=== PATIENT | female | born 1980 | race Caucasian/White ===

== ENCOUNTER 2019-07-07 09:08 | Emergency (ER) | payer OTHER ==
--- NOTE | 2019-07-07 10:13 | ER ---
Nurse's Notes [facility] Name: Kalani Gaming Age: 38 yrs Sex: Female : 1980 Arrival Date: 07/07/2019 Time: 09:12 Bed 15 Private MD: Unknown, Unknown Diagnosis: Migraine Presentation: 07/07 09:18 Presenting complaint: Migraine x 2 days. + photosensitivity, + nausea. Transition of hb care: patient was not received from another setting of care. Onset of symptoms was July 06, 2019. Risk Assessment: Do you want to hurt yourself or someone else? Patient reports no desire to harm self or others. Initial Sepsis Screen: Does the patient meet any 2 criteria? No. Patient's initial sepsis screen is negative. Does the patient have a suspected source of infection? No. Patient's initial sepsis screen is negative. Care prior to arrival: Medication(s) given: Excedrin at 0745 today. 09:18 Method Of Arrival: Ambulatory hb 09:18 Acuity: THO 3 hb Triage Assessment: 09:25 Headache History: The patient has had previous headaches and this one is similar to rb1 previous episodes. 09:25 Pain: Also complains of nausea, photophobia. 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 - Social history:: Smoking status: Patient uses tobacco products, smokes one-half pack cigarettes per day. - Ebola Screening: : No symptoms or risks identified at this time. - Family history:: not pertinent. Screenin:25 Abuse screen: Denies threats or abuse. Nutritional screening: No deficits noted. rb1 Tuberculosis screening: No symptoms or risk factors identified. Fall Risk None identified. Assessment: 09:25 General: Appears uncomfortable, Behavior is calm, cooperative, Denies fever. Pain: rb1 Complains of pain in right side of head Pain currently is 4 out of 10 on a pain scale. Pain began x 2 days. Neuro: Level of Consciousness is awake, alert, obeys commands, Oriented to person, place, time, situation. Neuro: Reports dizziness, headache in right photophobia. Cardiovascular: Capillary refill < 3 seconds is brisk in bilateral fingers. Respiratory: Airway is patent Respiratory effort is even, unlabored, Respiratory pattern is regular, symmetrical. GI: Reports nausea. : No signs and/or symptoms were reported regarding the genitourinary system. Derm: Skin is pink, warm \T\ dry. Musculoskeletal: Range of motion: intact in all extremities. 10:20 Reassessment: Patient appears in no apparent distress at this time. No changes from rb1 previously documented assessment. Pt. refused serum test because she has an IUD. 10:45 Reassessment: Discharge pending due to shot time. rb1 Vital Signs: 09:21 BP 116 / 70; Pulse 66; Resp 16; Temp 98.3; Pulse Ox 100% on R/A; Weight 63.05 kg; hb Height 5 ft. 4 in. (162.56 cm); Pain 4/10; 10:20 BP 124 / 74; Pulse 73; Resp 16; Temp 98.1(O); Pulse Ox 99% on R/A; rb1 11:05 BP 124 / 74; Pulse 62; Resp 15; Temp 98.1(O); Pulse Ox 100% on R/A; Pain 2/10; rb1 09:21 Body Mass Index 23.86 (63.05 kg, 162.56 cm) ED Course: 09:12 Patient arrived in ED. ag5 09:14 Unknown, Unknown is Private Physician. ag5 09:19 Triage completed. hb 09:21 Arm band placed on. hb 09:25 Chandler Camacho MD is Attending Physician. sarkis 09:25 Patient has correct armband on for positive identification. Bed in low position. Call rb1 light in reach. Side rails up X 1. Pulse ox on. NIBP on. Warm blanket given. 09:40 Bri Davidson, FREDI is Primary Nurse. rb1 10:12 Jacob Melo MD is Referral Physician. [facility] 11:05 No provider procedures requiring assistance completed. Patient did not have IV access rb1 during this emergency room visit. Administered Medications: 10:45 Drug: TORadol 60 mg Route: IM; Site: right gluteus; rb1 11:05 Follow up: Response: No adverse reaction; Pain is decreased rb1 10:45 Drug: Phenergan 25 mg Route: IM; Site: right deltoid; rb1 11:05 Follow up: Response: No adverse reaction; Nausea is decreased rb1 Outcome: 10:11 Discharge ordered by MD. sarkis 11:05 Patient left the ED. rb1 11:05 Discharged to home ambulatory, with significant other. rb1 11:05 Condition: stable 11:05 Discharge instructions given to patient, Instructed on discharge instructions, follow up and referral plans. medication usage, Demonstrated understanding of instructions, follow-up care, medications, Prescriptions given X 2. Signatures: Chandler Camacho MD MD cha Barber, Rebecca, RN RN [facility] Tamara Carbajal RN RN Madonna Watkins ag5 Corrections: (The following items were deleted from the chart) 11:31 11:25 Patient left the ED. rb1 rb1 11:32 10:20 Reassessment: Patient appears in no apparent distress at this time. No changes rb1 from previously documented assessment. rb1
--- NOTE | 2019-07-07 10:13 | EDPHYS ---
Physician Documentation [facility] Name: Kalani Gaming Age: 38 yrs Sex: Female : 1980 Arrival Date: 07/07/2019 Time: 09:12 Bed 15 Private MD: Unknown, Unknown ED Physician Chandler Camacho HPI: 07/07 10:04 This 38 yrs old Female presents to ER via Ambulatory with complaints of sarkis Headache. 10:04 The patient complains of pain to the top of head, forehead, left frontal area, right sarkis frontal area and right temporal area. The patient describes the headache as constant, a pressure. Onset: The symptoms/episode began/occurred 3 day(s) ago. Associated signs and symptoms: The patient has no apparent associated signs or symptoms. Severity of symptoms: At its worst the pain was mild, moderate, in the emergency department the pain is unchanged. Headache History: The patient has had previous headaches and this one is similar to previous episodes. The symptoms are alleviated by Darkened room, quiet, remaining still. The patient has experienced similar episodes in the past, multiple times. 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 - Social history:: Smoking status: Patient uses tobacco products, smokes one-half pack cigarettes per day. - Ebola Screening: : No symptoms or risks identified at this time. - Family history:: not pertinent. ROS: 10:04 Constitutional: Negative for fever, chills, and weight loss, Eyes: Negative for injury, sarkis pain, redness, and discharge, ENT: Negative for injury, pain, and discharge, Neck: Negative for injury, pain, and swelling, Cardiovascular: Negative for chest pain, palpitations, and edema, Respiratory: Negative for shortness of breath, cough, wheezing, and pleuritic chest pain, Abdomen/GI: Negative for abdominal pain, nausea, vomiting, diarrhea, and constipation, Back: Negative for injury and pain, : Negative for injury, bleeding, discharge, and swelling, MS/Extremity: Negative for injury and deformity, Skin: Negative for injury, rash, and discoloration, Psych: Negative for depression, anxiety, suicide ideation, homicidal ideation, and hallucinations, Allergy/Immunology: Negative for hives, rash, and allergies, Endocrine: Negative for neck swelling, polydipsia, polyuria, polyphagia, and marked weight changes, Hematologic/Lymphatic: Negative for swollen nodes, abnormal bleeding, and unusual bruising. 10:04 Neuro: Positive for headache. Exam: 10:04 Constitutional: This is a well developed, well nourished patient who is awake, alert, sarkis and in no acute distress. Head/Face: Normocephalic, atraumatic. Eyes: Pupils equal round and reactive to light, extra-ocular motions intact. Lids and lashes normal. Conjunctiva and sclera are non-icteric and not injected. Cornea within normal limits. Periorbital areas with no swelling, redness, or edema. ENT: Nares patent. No nasal discharge, no septal abnormalities noted. Tympanic membranes are normal and external auditory canals are clear. Oropharynx with no redness, swelling, or masses, exudates, or evidence of obstruction, uvula midline. Mucous membranes moist. Neck: Trachea midline, no thyromegaly or masses palpated, and no cervical lymphadenopathy. Supple, full range of motion without nuchal rigidity, or vertebral point tenderness. No Meningismus. Chest/axilla: Normal chest wall appearance and motion. Nontender with no deformity. No lesions are appreciated. Cardiovascular: Regular rate and rhythm with a normal S1 and S2. No gallops, murmurs, or rubs. Normal PMI, no JVD. No pulse deficits. Respiratory: Lungs have equal breath sounds bilaterally, clear to auscultation and percussion. No rales, rhonchi or wheezes noted. No increased work of breathing, no retractions or nasal flaring. Abdomen/GI: Soft, non-tender, with normal bowel sounds. No distension or tympany. No guarding or rebound. No evidence of tenderness throughout. Back: No spinal tenderness. No costovertebral tenderness. Full range of motion. Skin: Warm, dry with normal turgor. Normal color with no rashes, no lesions, and no evidence of cellulitis. MS/ Extremity: Pulses equal, no cyanosis. Neurovascular intact. Full, normal range of motion. Neuro: Awake and alert, GCS 15, oriented to person, place, time, and situation. Cranial nerves II-XII grossly intact. Motor strength 5/5 in all extremities. Sensory grossly intact. Cerebellar exam normal. Normal gait. Psych: Awake, alert, with orientation to person, place and time. Behavior, mood, and affect are within normal limits. 10:04 Neck: ROM/movement: is normal, no acute changes, Meningeal signs: are not present, Kernig's sign is negative, Brudzinski's sign is negative, Lymph nodes: no appreciated lymphadenopathy. Vital Signs: 09:21 BP 116 / 70; Pulse 66; Resp 16; Temp 98.3; Pulse Ox 100% on R/A; Weight 63.05 kg; hb Height 5 ft. 4 in. (162.56 cm); Pain 4/10; 10:20 BP 124 / 74; Pulse 73; Resp 16; Temp 98.1(O); Pulse Ox 99% on R/A; rb1 11:05 BP 124 / 74; Pulse 62; Resp 15; Temp 98.1(O); Pulse Ox 100% on R/A; Pain 2/10; rb1 09:21 Body Mass Index 23.86 (63.05 kg, 162.56 cm) hb MDM: 09:25 Patient medically screened. [facility] 10:09 Data reviewed: vital signs, nurses notes, lab test result(s), urinalysis. [facility] 07/07 10:07 Order name: Urine Dipstick--Ancillary (enter results) em1 07/07 10:04 Order name: Urine Dipstick-Ancillary (obtain specimen); Complete Time: 10:06 [facility] 07/07 10:04 Order name: Urine Test (obtain specimen); Complete Time: 10:06 [facility] Administered Medications: 10:45 Drug: TORadol 60 mg Route: IM; Site: right gluteus; [facility] 11:05 Follow up: Response: No adverse reaction; Pain is decreased rb1 10:45 Drug: Phenergan 25 mg Route: IM; Site: right deltoid; rb1 11:05 Follow up: Response: No adverse reaction; Nausea is decreased rb1 Disposition: 07/07/19 10:11 Discharged to Home. Impression: Migraine. - Condition is Stable. - Discharge Instructions: Migraine Headache. - Prescriptions for Fioricet with Codeine 50- 325-40-30 mg Oral capsule - take 1 capsule by ORAL route every 4 hours as needed not to exceed 6 capsules per 24hrs; 20 capsule. Zofran 4 mg Oral Tablet - take 1 tablet by ORAL route every 12 hours As needed; 20 tablet. - Medication Reconciliation Form, Thank You Letter, Antibiotic Education, Prescription Opioid Use form. - Follow up: Private Physician; When: 2 - 3 days; Reason: Recheck today's complaints, Continuance of care, Re-evaluation by your physician. Follow up: Jacob Melo MD; When: 2 - 3 days; Reason: Recheck today's complaints, Re-evaluation by your physician. - Problem is new. - Symptoms have improved. Signatures: Dispatcher [employer] EDWI Chandler Camacho MD MD cha Barber, Rebecca RN RN rb1 Tamara Carbajal RN RN Corrections: (The following items were deleted from the chart) 10:09 10:04 Chest/axilla: Exam negative for sarkis sarkis 10:12 10:11 07/07/2019 10:11 Discharged to Home. Impression: Migraine. Condition is Stable. sarkis Forms are Medication Reconciliation Form, Thank You Letter, Antibiotic Education, Prescription Opioid Use. Follow up: Private Physician; When: 2 - 3 days; Reason: Recheck today's complaints, Continuance of care, Re-evaluation by your physician. Problem is new. Symptoms have improved. sarkis 11:25 10:12 07/07/2019 10:11 Discharged to Home. Impression: Migraine. Condition is Stable. rb1 Forms are Medication Reconciliation Form, Thank You Letter, Antibiotic Education, Prescription Opioid Use. Follow up: Private Physician; When: 2 - 3 days; Reason: Recheck today's complaints, Continuance of care, Re-evaluation by your physician. Follow up: Jacob Melo; When: 2 - 3 days; Reason: Recheck today's complaints, Re-evaluation by your physician. Problem is new. Symptoms have improved. sarkis
[2019-07-07] MEDS ORDERED: PROMETHAZINE 25 MG/ML VIAL ONE (10:39)
[2019-07-07] MEDS ORDERED: KETOROLAC 30 MG/ML INJ ONE (10:39)
[2019-07-07 12:44] LABS: Urine Blood NEGATIVE (NEG); Urine Glucose NEGATIVE (NEG); Urine Protein NEGATIVE (NEG); Urine Specific Gravity <1.005 (1.005-1.030); Urine pH 5.5 (5.0-7.0)
== END 2019-07-07 11:25 | disposition home or self-care (01) ==
LOC: ER 09:08
DX: G43.909 Migraine, unspecified, not intractable, without status migrainosus (principal); Z88.0 Allergy status to penicillin; Z88.2 Allergy status to sulfonamides; Z88.6 Allergy status to analgesic agent
CPT/HCPCS: 81003; 96372; 99283; J2550

== ENCOUNTER 2019-08-01 21:08 | Emergency (ER) | payer OTHER ==
[2019-08-01 21:50] LABS: Calcium Oxalate Crystals- Ur PRESENT (NONE SEEN); Urine Bacteria 20-50 /HPF (<20); Urine Culture Reflex Order REFLEXED; Urine RBC <5 /HPF (NONE SEEN)
[2019-08-01 22:17] LABS: Urine Blood 2+ (NEG); Urine Glucose NEGATIVE (NEG); Urine Protein 1+ (NEG); Urine Specific Gravity >1.030 (1.005-1.030); Urine pH 5.5 (5.0-7.0)
[2019-08-01] MEDS ORDERED: NA CHLORIDE 0.9% 1,000 ML ONE (23:06)
[2019-08-01] MEDS ORDERED: FENTANYL CITR 100 MCG/2 ML ONE (23:06)
[2019-08-01] MEDS ORDERED: ONDANSETRON 4 MG/2 ML VIAL ONE (23:06)
[2019-08-01 23:24] LABS: Absolute Lymphocytes (CBC) 1.5 K/uL (0.7-4.9); Basophils % 0.6 % (0-1.3); Hematocrit 41.8 % (36.0-45.0); Lymphocytes % 25.9 % (15.3-44.8); MPV 9.5 fL (7.6-11.3); RBC Red Blood Cell Count 4.49 M/uL (3.86-4.86)
[2019-08-01 23:40] LABS: ALT/SGPT 16 U/L (12-78); AST/SGOT 14 U/L (15-37); Albumin 3.7 g/dL (3.4-5.0); Alkaline Phosphatase 59 U/L (45-117); BUN Blood Urea Nitrogen 9 mg/dL (7-18); Bicarbonate 23 mmol/L (21-32); Bilirubin Direct < 0.1 mg/dL (0-0.2); Bilirubin Total 0.2 mg/dL (0.2-1.0); Glucose Level 107 mg/dL (74-106); Lipase 181 U/L (73-393); Potassium 3.9 mmol/L (3.5-5.1); Protein, Total 6.8 g/dL (6.4-8.2); Sodium Level 143 mmol/L (136-145)
--- NOTE | 2019-08-02 01:34 | ER ---
Nurse's Notes [facility] Name: Kalani Gaming Age: 38 yrs Sex: Female : 1980 Arrival Date: 08/01/2019 Time: 21:12 Bed 13 Private MD: Diagnosis: Lower abdominal pain, unspecified;Diarrhea, unspecified Presentation: 08/01 21:15 Presenting complaint: Patient states: i have diarrhea and abdominal since yesterday. mg2 Transition of care: patient was not received from another setting of care. Onset of symptoms was July 31, 2019 at 01:00. Risk Assessment: Do you want to hurt yourself or someone else? Patient reports no desire to harm self or others. Initial Sepsis Screen: Does the patient meet any 2 criteria? No. Patient's initial sepsis screen is negative. Does the patient have a suspected source of infection? No. Patient's initial sepsis screen is negative. Care prior to arrival: None. 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 - Social history:: Smoking status: Patient uses tobacco products, smokes one-half pack cigarettes per day, Patient/guardian denies using alcohol, street drugs. - Ebola Screening: : No symptoms or risks identified at this time. Screenin:20 Abuse screen: Denies threats or abuse. Nutritional screening: No deficits noted. ea Tuberculosis screening: No symptoms or risk factors identified. Fall Risk None identified. Assessment: 21:30 General: Appears uncomfortable, Behavior is calm, cooperative, appropriate for age. ea Pain: Complains of pain in abdomen. Neuro: Level of Consciousness is awake, alert, obeys commands, Oriented to person, place, time, situation. Cardiovascular: Patient's skin is warm and dry. Respiratory: Airway is patent Respiratory effort is even, unlabored, Respiratory pattern is regular, symmetrical. GI: Abdomen is non-distended, Bowel sounds present X 4 quads. Abd is soft and non tender X 4 quads. Derm: Skin is pink, warm \T\ dry. 22:30 Reassessment: Patient and/or family updated on plan of care and expected duration. Pain ea level reassessed. Patient is alert, oriented x 3, equal unlabored respirations, skin warm/dry/pink. 23:32 Reassessment: Patient and/or family updated on plan of care and expected duration. Pain ea level reassessed. Patient is alert, oriented x 3, equal unlabored respirations, skin warm/dry/pink. 08/02 00:04 Reassessment: Patient and/or family updated on plan of care and expected duration. Pain ea level reassessed. Patient is alert, oriented x 3, equal unlabored respirations, skin warm/dry/pink. 01:40 Reassessment: Patient and/or family updated on plan of care and expected duration. Pain ea level reassessed. Patient is alert, oriented x 3, equal unlabored respirations, skin warm/dry/pink. Discharge instruction given to patient, verbalized the understanding of instruction. Pt left ED ambulatory accompanied by family. Vital Signs: 08/01 21:19 BP 124 / 70; Pulse 83; Resp 18; Temp 98.8(O); Pulse Ox 100% on R/A; Weight 63.5 kg; mg2 Height 5 ft. 3 in. (160.02 cm); Pain 6/10; 23:15 BP 107 / 70; Pulse 69; Resp 18; Pulse Ox 98% on R/A; ea 08/02 00:50 BP 110 / 68; Pulse 70; Resp 18; Temp 97.8; Pulse Ox 98% on R/A; ea 01:30 BP 127 / 80; Pulse 71; Resp 18; Temp 97.6; Pulse Ox 98% ; ea 08/01 21:19 Body Mass Index 24.80 (63.50 kg, 160.02 cm) mg2 ED Course: 08/01 21:12 Patient arrived in ED. cf2 21:17 Triage completed. mg2 21:20 Arm band placed on. mg2 21:23 Pearl Recio, FREDI is Primary Nurse. ea 21:24 Marquez Acuña MD is Attending Physician. 23:21 Patient has correct armband on for positive identification. Bed in low position. Call ea light in reach. Side rails up X2. 23:22 Inserted saline lock: 22 gauge in right antecubital area, using aseptic technique. ea 08/02 00:23 CT Abd/Pelvis - IV Contrast Only In Process Unspecified. EDMS 01:39 No provider procedures requiring assistance completed. IV discontinued, intact, ea bleeding controlled, No redness/swelling at site. Pressure dressing applied. Administered Medications: 08/01 23:20 Drug: fentaNYL (PF) 50 mcg Route: IVP; Site: right antecubital; ea 08/02 00:00 Follow up: Response: No adverse reaction; Pain is decreased ea 01:44 Follow up: Response: No adverse reaction; Pain is decreased; RASS: Alert and Calm (0) ea 08/01 23:20 Drug: Zofran 4 mg Route: IVP; Site: right antecubital; ea 08/02 00:00 Follow up: Response: No adverse reaction ea 08/01 23:20 Drug: NS 0.9% 1000 ml Route: IV; Rate: 1 bolus; Site: right antecubital; ea 08/02 01:38 Follow up: Response: No adverse reaction; IV Status: Completed infusion; IV Intake: ea 1000ml Intake: 01:38 IV: 1000ml; Total: 1000ml. ea Outcome: 01:32 Discharge ordered by . 01:40 Discharged to home ambulatory, with family. ea 01:40 Condition: stable 01:40 Discharge instructions given to patient, Instructed on discharge instructions, follow up and referral plans. Demonstrated understanding of instructions, follow-up care. 01:43 Patient left the ED. ea Signatures: Dispatcher [employer] EDNE Pearl Recio RN RN ea Starr, Gregory, MD MD gs Gardose, Michele, RN RN mg2 Grazyna Scott cf2 Corrections: (The following items were deleted from the chart) 01:41 01:40 Discharge instructions given to patient, Instructed on discharge instructions, ea follow up and referral plans. Demonstrated understanding of instructions, follow-up care, Prescriptions given X ea 01:44 00:00 Response: No adverse reaction; Pain is decreased ea ea
--- NOTE | 2019-08-02 01:35 | EDPHYS ---
Physician Documentation [facility] Name: Kalani Gaming Age: 38 yrs Sex: Female : 1980 Arrival Date: 08/01/2019 Time: 21:12 Bed 13 Private MD: ED Physician Marquez Acuña HPI: 08/02 01:22 This 38 yrs old Female presents to ER via Ambulatory with complaints of gs Abdominal Pain, Diarrhea. 01:22 The patient presents to the emergency department with diarrhea. Onset: The gs symptoms/episode began/occurred yesterday. Possible causes: unknown. The symptoms are aggravated by nothing. The symptoms are alleviated by nothing. Associated signs and symptoms: Pertinent positives: abdominal pain, Pertinent negatives: fever. Severity of symptoms: At their worst the symptoms were severe in the emergency department the symptoms have improved mildly. The patient has experienced similar episodes in the past, a few times. The patient has not recently seen a physician. 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 - Social history:: Smoking status: Patient uses tobacco products, smokes one-half pack cigarettes per day, Patient/guardian denies using alcohol, street drugs. - Ebola Screening: : No symptoms or risks identified at this time. ROS: 08/02 01:22 All other systems are negative. gs Exam: 01: Head/Face: Normocephalic, atraumatic. Eyes: Pupils equal round and reactive to light, gs extra-ocular motions intact. Lids and lashes normal. Conjunctiva and sclera are non-icteric and not injected. Cornea within normal limits. Periorbital areas with no swelling, redness, or edema. ENT: Nares patent. No nasal discharge, no septal abnormalities noted. Tympanic membranes are normal and external auditory canals are clear. Oropharynx with no redness, swelling, or masses, exudates, or evidence of obstruction, uvula midline. Mucous membranes moist. Neck: Trachea midline, no thyromegaly or masses palpated, and no cervical lymphadenopathy. Supple, full range of motion without nuchal rigidity, or vertebral point tenderness. No Meningismus. Chest/axilla: Normal chest wall appearance and motion. Nontender with no deformity. No lesions are appreciated. Cardiovascular: Regular rate and rhythm with a normal S1 and S2. No gallops, murmurs, or rubs. Normal PMI, no JVD. No pulse deficits. Respiratory: Lungs have equal breath sounds bilaterally, clear to auscultation and percussion. No rales, rhonchi or wheezes noted. No increased work of breathing, no retractions or nasal flaring. Back: No spinal tenderness. No costovertebral tenderness. Full range of motion. Skin: Warm, dry with normal turgor. Normal color with no rashes, no lesions, and no evidence of cellulitis. MS/ Extremity: Pulses equal, no cyanosis. Neurovascular intact. Full, normal range of motion. Neuro: Awake and alert, GCS 15, oriented to person, place, time, and situation. Cranial nerves II-XII grossly intact. Motor strength 5/5 in all extremities. Sensory grossly intact. Cerebellar exam normal. Normal gait. 01:22 Constitutional: The patient appears alert, awake, uncomfortable. 01:22 Abdomen/GI: Palpation: moderate abdominal tenderness, in the right lower quadrant and left lower quadrant, rebound tenderness, is not appreciated. Vital Signs: 08/01 21:19 BP 124 / 70; Pulse 83; Resp 18; Temp 98.8(O); Pulse Ox 100% on R/A; Weight 63.5 kg; mg2 Height 5 ft. 3 in. (160.02 cm); Pain 6/10; 23:15 BP 107 / 70; Pulse 69; Resp 18; Pulse Ox 98% on R/A; ea 08/02 00:50 BP 110 / 68; Pulse 70; Resp 18; Temp 97.8; Pulse Ox 98% on R/A; ea 01:30 BP 127 / 80; Pulse 71; Resp 18; Temp 97.6; Pulse Ox 98% ; ea 08/01 21:19 Body Mass Index 24.80 (63.50 kg, 160.02 cm) mg2 MDM: 08/01 22:03 Patient medically screened. 08/02 01:22 Differential diagnosis: appendicitis, diverticulitis, viral gastroenteritis, gs gastroenteritis. Data reviewed: vital signs, nurses notes, lab test result(s), radiologic studies. Response to treatment: the patient's symptoms have markedly improved after treatment, the patient's condition has returned to base line, patient is well hydrated. and as a result, I will discharge patient. 08/01 21:30 Order name: Urine Microscopic Only; Complete Time: 22:57 08/01 21:51 Order name: Urine Dipstick--Ancillary (enter results); Complete Time: :57 [facility] 08/01 21:51 Order name: Urine --Ancillary (enter results); Complete Time: :57 [facility] 08/01 21:52 Order name: Urine Culture [facility] 08/01 22:58 Order name: Basic Metabolic Panel; Complete Time: 01:01 08/01 22:58 Order name: CBC with Diff; Complete Time: 01:01 08/01 21:30 Order name: Urine Test (obtain specimen); Complete Time: 21:40 08/01 21:30 Order name: Urine Dipstick-Ancillary (obtain specimen); Complete Time: 21:40 08/01 22:58 Order name: Hepatic Function; Complete Time: 01:01 08/01 22:58 Order name: Lipase; Complete Time: 01:01 08/01 22:58 Order name: CT Abd/Pelvis - IV Contrast Only 08/01 22:58 Order name: IV Saline Lock; Complete Time: 23:20 08/01 22:58 Order name: Labs collected and sent; Complete Time: 23:20 Administered Medications: 08/01 23:20 Drug: fentaNYL (PF) 50 mcg Route: IVP; Site: right antecubital; 08/02 00:00 Follow up: Response: No adverse reaction; Pain is decreased ea 01:44 Follow up: Response: No adverse reaction; Pain is decreased; RASS: Alert and Calm (0) 08/01 23:20 Drug: Zofran 4 mg Route: IVP; Site: right antecubital; 08/02 00:00 Follow up: Response: No adverse reaction 08/01 23:20 Drug: NS 0.9% 1000 ml Route: IV; Rate: 1 bolus; Site: right antecubital; 08/02 01:38 Follow up: Response: No adverse reaction; IV Status: Completed infusion; IV Intake: ea 1000ml Disposition: 08/02/19 01:32 Discharged to Home. Impression: Lower abdominal pain, unspecified, Diarrhea, unspecified. - Condition is Stable. - Discharge Instructions: Abdominal Pain, Adult, Diarrhea, Adult. - Medication Reconciliation Form, Thank You Letter, Antibiotic Education, Prescription Opioid Use form. - Follow up: Private Physician; When: 2 - 3 days; Reason: Re-evaluation by your physician. Signatures: Dispatcher [employer] Pearl Lassiter RN RN ea Starr, Gregory, MD MD gs Gardose, Michele, RN RN mg2 Corrections: (The following items were deleted from the chart) 01:43 01:32 08/02/2019 01:32 Discharged to Home. Impression: Lower abdominal pain, ea unspecified; Diarrhea, unspecified. Condition is Stable. Forms are Medication Reconciliation Form, Thank You Letter, Antibiotic Education, Prescription Opioid Use. Follow up: Private Physician; When: 2 - 3 days; Reason: Re-evaluation by your physician. caridad
[2019-08-02 01:54] VITALS: O2SAT 98
[2019-08-02 01:56] VITALS: BP 127/80; TEMP 97.6
--- NOTE | 2019-08-04 18:10 | RAD REPORT ---
EXAM DESCRIPTION: CT - Abdomen Pelvis W Contrast - 08/02/2019 12:59 am CLINICAL HISTORY: 38 years Female ABD PAIN COMPARISON: None TECHNIQUE: Images were obtained in axial, sagittal, and coronal planes. Intravenous contrast was adm inistered. This exam was performed according to our departmental dose-optimization program which includes use of Automated Exposure Control, adjustment of the mA and/or kV according to patient size and/or use of i terative reconstruction technique FINDINGS: No abnormality involving the liver, spleen, pancreas, or adrenal glands bilaterally. Contr acted gallbladder. Symmetric renal function bilaterally. No obstructing renal calcifications bilaterally. No hydronephro sis bilaterally. Unremarkable bladder. IUD is identified within the endometrial cavity. Appendix not well identified however no secondary signs for appendicitis. No bowel obstruction, perfo ration, or inflammation. No abnormality abdominal aorta or portal vein. No adenopathy or abnormal fluid collections seen. No abnormality lower lungs bilaterally. No acute osseous abnormality. IMPRESSION: No acute intra-abdominal abnormality. Electronically signed by: Henna Herrera MD 08/02/2019 12:36 AM CDT Due to temporary technical issues with the PACS/Fluency reporting system, reports are being signed by the in house radiologist as a courtesy to ensure prompt reporting. The interpreting radiologist is f ully responsible for the content of the report.
== END 2019-08-02 01:43 | disposition home or self-care (01) ==
LOC: ER 21:08
DX: R19.7 Diarrhea, unspecified (principal); F17.210 Nicotine dependence, cigarettes, uncomplicated; F41.9 Anxiety disorder, unspecified; F32.9 Major depressive disorder, single episode, unspecified; Z88.0 Allergy status to penicillin; Z88.1 Allergy status to other antibiotic agents; Z88.2 Allergy status to sulfonamides; Z88.5 Allergy status to narcotic agent
CPT/HCPCS: 96361; 87088; 85025; 87086; 80048; 36415; 81025; 80076; 83690; 74177; 96375; 96374; 99284; Q9967; J3010; J7030; J2405; 81003; 81015